=== PATIENT | female | born 1930 | race Caucasian/White ===

== ENCOUNTER 2018-05-27 15:15 | Outpatient (CLI) | payer MEDICARE, MEDICAID ==
[~2018-05-27 15:15] MED LIST: BISA-155 PO; ENAL20TA75 PO; FAMO20TA8 PO; HYDR-3972 PO; HYDR12.55 PO; LACT10SO PO; LEVO75TA PO; MAGN800O PO; SENN-29 PO; SIMV40TA PO
== END 2018-05-27 23:59 | disposition home or self-care (01) ==
LOC: RAD 15:15
DX: R13.10 Dysphagia, unspecified (principal); E03.9 Hypothyroidism, unspecified; I10 Essential (primary) hypertension; I25.119 Atherosclerotic heart disease of native coronary artery with unspecified angina pectoris; K21.9 Gastro-esophageal reflux disease without esophagitis; I87.2 Venous insufficiency (chronic) (peripheral); F23 Brief psychotic disorder; F06.8 Other specified mental disorders due to known physiological condition; I25.2 Old myocardial infarction; Z95.1 Presence of aortocoronary bypass graft
CPT/HCPCS: 74230